=== PATIENT | female | born 1975 | race American Indian/Alaskan Native ===

== ENCOUNTER 2017-04-26 18:14 | Emergency (ER) | payer OTHER ==
[2017-04-26] MEDS ORDERED: FLEXERIL PO ONE (20:34)
[2017-04-26] MEDS ORDERED: TORADOL IM ONE (20:34)
--- NOTE | 2017-04-26 21:38 | XRay Report ---
FINAL REPORT EXAM: XR HIP 2-3V LT HISTORY: pain/injury COMPARISONS: None. FINDINGS: AP pelvis with frog-leg lateral view left hip Left hip joint is intact. Hip joint spaces are symmetric and preserved. No displaced fractures. Sacroiliac joints and pubic symphysis are without acute finding. Fallopian contraceptive devices. Pelvic phleboliths. IMPRESSION: No fracture or dislocation.
--- NOTE | 2017-04-26 22:20 | Emergency Department Report ---
Entered by WANDER GORE, acting as scribe for REJI OCASIO PA. ED Lower Extremity HPI - General Chief Complaint: Extremity Injury, Lower Stated Complaint: LEFT PAIN Time Seen by Provider: 04/26/17 20:11 Source: patient Mode of arrival: Ambulatory Limitations: No Limitations - History of Present Illness Initial Comments: 42 y/o female with no significant PMHx presents to the ED c/o left hip pain that began this afternoon at 13:30. Patient states she was running at work, and she subsequently heard a pop in left hip. Rates pain an 8/10 in severity, which she describes as aching in quality. Aggravated weight bearing, walking, and movement, and alleviated with immobilization. Denies fall injury, abdominal pain , numbness and tingling. Took Motrin with no relief. LMP 04/12/2017. NKDA. MOLINA Complaint: hip injury (left) -: This afternoon Time: 13:30 Injury: Hip: Left Type of Injury: unknown Place: work Severity: severe Severity scale (0 -10): 10 Improves With: nothing Worsens With: weight bearing, movement, palpation Context: running Associated Symptoms: snap/pop sensation, able to partially bear weight. denies : swelling, numbness, tingling - Related Data Previous Rx's Medication Instructions Recorded Last Taken Type Cyclobenzaprine [Flexeril] 10 mg PO QHS PRN #24 tablet 04/26/17 Unknown Rx Ibuprofen [Motrin] 800 mg PO Q8HR PRN #40 tablet 04/26/17 Unknown Rx Allergies Allergy/AdvReac Type Severity Reaction Status Date / Time No Known Allergies Allergy Verified 04/26/17 18:39 ED Review of Systems Comment: All other systems reviewed and negative Constitutional: denies: chills, diaphoresis, fever, weakness Eyes: denies: eye pain, eye discharge, vision change ENT: denies: ear pain, throat pain Respiratory: denies: cough, orthopnea, shortness of breath, SOB with exertion, SOB at rest, stridor, wheezing Cardiovascular: denies: chest pain, palpitations, dyspnea on exertion, orthopnea , edema, syncope, paroxysmal nocturnal dyspnea Endocrine: no symptoms reported Gastrointestinal: denies: abdominal pain, nausea, vomiting, diarrhea Musculoskeletal: myalgia (left hip pain). denies: back pain, joint swelling, arthralgia Skin: denies: rash, lesions Neurological: denies: headache, weakness, numbness, paresthesias ED Past Medical Hx - Past Medical History Previous Medical History?: No - Surgical History Past Surgical History?: No - Social History Smoking Status: Never Smoker Substance Use Type: Alcohol - Medications Home Medications: Home Medications Medication Instructions Recorded Confirmed Last Taken Type Cyclobenzaprine [Flexeril] 10 mg PO QHS PRN #24 tablet 04/26/17 Unknown Rx Ibuprofen [Motrin] 800 mg PO Q8HR PRN #40 tablet 04/26/17 Unknown Rx ED Physical Exam - General Limitations: No Limitations General appearance: alert, in no apparent distress - Head Head exam: Present: atraumatic, normocephalic - Eye Eye exam: Present: normal appearance, PERRL, EOMI Pupils: Present: normal accommodation - ENT ENT exam: Present: normal exam, mucous membranes moist, normal external ear exam - Neck Neck exam: Present: normal inspection, full ROM. Absent: tenderness, meningismus, lymphadenopathy - Respiratory Respiratory exam: Present: normal lung sounds bilaterally. Absent: respiratory distress, wheezes, rales, rhonchi, stridor, accessory muscle use, decreased breath sounds - Cardiovascular Cardiovascular Exam: Present: regular rate, normal rhythm, normal heart sounds. Absent: systolic murmur, diastolic murmur, rubs, gallop - GI/Abdominal GI/Abdominal exam: Present: soft, normal bowel sounds. Absent: distended, tenderness, guarding, rebound, rigid - Extremities Exam Extremities exam: Present: full ROM (painful ROM to left hip), tenderness (left hip), normal capillary refill. Absent: pedal edema, joint swelling, calf tenderness - Expanded Lower Extremity Exam Left Hip exam: Present: full ROM (painful ROM to left hip), tenderness, external rotation, internal rotation, pelvic stability. Absent: swelling, abrasion, laceration, ecchymosis, deformity, crepidus, dislocation, erythema, shortening Upper Leg exam: Present: normal inspection, full ROM. Absent: tenderness, swelling, abrasion, laceration, ecchymosis, deformity, crepidus, dislocation, erythema Knee exam: Present: normal inspection, full ROM Lower Leg exam: Present: normal inspection, full ROM Ankle exam: Present: normal inspection, full ROM Foot/Toe exam: Present: normal inspection, full ROM Neuro vascular tendon exam: Present: no vascular compromise. Absent: pulse deficit, abnormal cap refill, motor deficit, sensory deficit, tendon deficit, extremity cold to touch, pallor, abnormal 2-point discrimination, decreased fine /light touch, foot drop, peroneal nerve deficit, significant pain with passive ROM of distal joint Gait: Positive: observed and limited by pain - Back Exam Back exam: Present: normal inspection, full ROM. Absent: tenderness, paraspinal tenderness, vertebral tenderness - Neurological Exam Neurological exam: Present: alert, oriented X3, normal gait (limited due to left hip pain) - Psychiatric Psychiatric exam: Present: normal affect, normal mood - Skin Skin exam: Present: warm, dry, intact. Absent: rash ED Course Vital Signs 04/26/17 18:34 Temperature 97.7 F Pulse Rate 73 Respiratory 16 Rate Blood Pressure 137/78 O2 Sat by Pulse 100 Oximetry ED Lower Extremity MDM - Medical Decision Making 42 year-old female presents with left hip myalgia ED course: Patient received an X-ray of left hip. Patient received 1 dose of Toradol and 1 dose of Flexeril. Hip x-ray shows no acute fracture, dislocation normal hip x-ray Discussed the patient pain medication as prescribed. Discussed with patient to apply heat to left hip and to keep leg elevated. Discussed the patient to follow instructions as given and follow-up with primary care physician and orthopedic referred. Discuss her symptoms return or worsen to return to the ED Vital signs are normal patient is in no acute distress ED Disposition Clinical Impression: Lumbar radiculopathy, Myalgia Disposition: TO HOME OR SELFCARE Is pt being admited?: No Does the pt Need Aspirin: No Condition: Stable Instructions: Muscle Strain (ED), Lumbar Radiculopathy (ED), Musculoskeletal Pain (ED) Additional Instructions: Follow-up with a primary care physician. Follow-up. Orthopedic is negative. Take your medication as prescribed Prescriptions: Cyclobenzaprine [Flexeril] 10 mg PO QHS PRN #24 tablet PRN Reason: Muscle Spasm Ibuprofen [Motrin] 800 mg PO Q8HR PRN #40 tablet PRN Reason: Pain Referrals: PRIMARY CARE, [Primary Care Provider] - 3-5 Days WEI CHRISTIAN MD [Staff Physician] - 3-[address] [facility] [Outside] - 3-5 Days [facility] [Outside] - 3-5 Days TERE OHARA MD [Staff Physician] - 3-5 Days Forms: Accompanied Note, Work/School Release Form Time of Disposition: 21:27 This documentation as recorded by the idaibBAO goldstein JASMINE,accurately reflects the service I personally performed and the decisions made by ,REJI OCASIO PA.
[2017-04-26 22:45] VITALS: BP 143/86
== END 2017-04-26 22:45 | disposition home or self-care (01) ==
LOC: ED 18:14
DX: M25.552 Pain in left hip (principal); M54.16 Radiculopathy, lumbar region; M79.1 Myalgia; X58.XXXA Exposure to other specified factors, initial encounter; Y93.89 Activity, other specified; Y99.8 Other external cause status; Y92.89 Other specified places as the place of occurrence of the external cause
CPT/HCPCS: 73502; 96372; 99283; J1885

== ENCOUNTER 2020-07-13 11:28 | Emergency (ER) | payer SELFPAY ==
[2020-07-13 12:29] LABS: Basophils % (Auto) 0.3 % (0.0-1.8); Eosinophils % (Auto) 0.3 % (0.0-4.3); Hematocrit 31.5 % (30.3-42.9); Hemoglobin 10.5 gm/dl (10.1-14.3); Lymphocytes # (Auto) 1.7 K/mm3 (1.2-5.4); Lymphocytes % (Auto) 14.1 % (13.4-35.0); Mean Corpuscular HGB Conc 33 % (30-34); Mean Corpuscular Volume 79 fl (79-97); Monocytes # (Auto) 0.7 K/mm3 (0.0-0.8); Monocytes % (Auto) 5.5 % (0.0-7.3); Platelet Count 361 K/mm3 (140-440); Red Blood Count 3.99 M/mm3 (3.65-5.03); Red Cell Distribution Width 18.5 % (13.2-15.2)
--- NOTE | 2020-07-13 19:30 | Emergency Department Report ---
ED Female HPI - General Chief complaint: Vaginal Bleeding Stated complaint: BLOOD FLOW ABNORMAL/HEADACHE Time Seen by Provider: 07/13/20 18:18 Source: patient Mode of arrival: Ambulatory Limitations: No Limitations - History of Present Illness Initial comments: The patient was evaluated in the emergency department for symptoms described in the history of present illness. He/she was evaluated in the context of the global COVID-19 pandemic, which necessitated consideration that the patient might be at risk for infection with the virus that causes COVID-19. Institutional protocols and algorithms that pertain to the evaluation of patients at risk for COVID-19 are in a state of rapid change based on information released by regulatory bodies including the CDC and federal and state organizations. These policies and algorithms were followed during the patient's care in the emergency department. Please note that these policies, procedures and recommendations changed on a rapid basis. 45-year-old -[place] female presents to the emergency room for 2-day history of heavy bleeding with clots. Patient also was complaining of a headach e but states that it has improved. Patient states that she is going to 3-4 maxipads per hour. Patient reports that she has a Essure to both tubes. Patient reports she is having intermittent menstrual periods. MD Complaint: vaginal bleeding Onset/Timin -: days(s) Location: suprapubic Severity: severe Quality: cramping Consistency: constant Improves with: none Worsens with: none Are you Now?: No Last Menstrual Period: 07/12/20 EDC: 04/18/21 Associated Symptoms: vaginal bleeding, abdominal pain, headaches (Resolved). denies: vaginal discharge, nausea/vomiting, fever/chills, loss of appetite, hematuria, shortness of breath - Related Data Sexually active: Yes Previous Rx's Medication Instructions Recorded Last Taken Type Cyclobenzaprine [Flexeril] 10 mg PO QHS PRN #24 tablet 04/26/17 Unknown Rx Ibuprofen [Motrin 800 MG tab] 800 mg PO Q8HR PRN #30 tablet 07/13/20 Unknown Rx Allergies Allergy/AdvReac Type Severity Reaction Status Date / Time No Known Allergies Allergy Verified 04/26/17 18:39 ED Review of Systems ROS: Stated complaint: BLOOD FLOW ABNORMAL/HEADACHE Other details as noted in HPI Comment: All other systems reviewed and negative ED Past Medical Hx - Past Medical History Previous Medical History?: No - Surgical History Past Surgical History?: No - Social History Smoking Status: Never Smoker Substance Use Type: Alcohol - Medications Home Medications: Home Medications Medication Instructions Recorded Confirmed Last Taken Type Cyclobenzaprine [Flexeril] 10 mg PO QHS PRN #24 tablet 04/26/17 Unknown Rx Ibuprofen [Motrin 800 MG tab] 800 mg PO Q8HR PRN #30 tablet 07/13/20 Unknown Rx ED Physical Exam - General Limitations: No Limitations General appearance: alert, in no apparent distress - Head Head exam: Present: atraumatic, normocephalic - Eye Eye exam: Present: normal appearance - ENT ENT exam: Present: mucous membranes moist - Neck Neck exam: Present: normal inspection - Respiratory Respiratory exam: Present: normal lung sounds bilaterally. Absent: respiratory distress - Cardiovascular Cardiovascular Exam: Present: regular rate, normal rhythm. Absent: systolic murmur, diastolic murmur, rubs, gallop - GI/Abdominal GI/Abdominal exam: Present: soft, tenderness (Suprapubic). Absent: distended - Extremities Exam Extremities exam: Present: normal inspection - Back Exam Back exam: Present: normal inspection - Neurological Exam Neurological exam: Present: alert, oriented X3, normal gait - Psychiatric Psychiatric exam: Present: normal affect, normal mood - Skin Skin exam: Present: warm, dry, intact, normal color. Absent: rash ED Course Vital Signs 07/13/20 11:51 Temperature 98.4 F Pulse Rate 79 Respiratory 18 Rate Blood Pressure 184/113 [Right] O2 Sat by Pulse 100 Oximetry ED Medical Decision Making - Lab Data Result diagrams: 07/13/20 12:02 Laboratory Tests 07/13/20 07/13/20 07/13/20 12:02 12:02 12:02 WBC 12.0 H RBC 3.99 Hgb 10.5 Hct 31.5 MCV 79 MCH 26 L MCHC 33 RDW 18.5 H Plt Count 361 Lymph % (Auto) 14.1 Burt % (Auto) 5.5 Eos % (Auto) 0.3 Baso % (Auto) 0.3 Lymph # (Auto) 1.7 Burt # (Auto) 0.7 Eos # (Auto) 0.0 Baso # (Auto) 0.0 Seg Neutrophils % 79.8 H Seg Neutrophils # 9.5 H HCG, Qual Negative HCG, Quant < 2 Blood Type 07/13/20 12:02 WBC RBC Hgb Hct MCV MCH MCHC RDW Plt Count Lymph % (Auto) Burt % (Auto) Eos % (Auto) Baso % (Auto) Lymph # (Auto) Burt # (Auto) Eos # (Auto) Baso # (Auto) Seg Neutrophils % Seg Neutrophils # HCG, Qual HCG, Quant Blood Type O POSITIVE - Radiology Data Radiology results: report reviewed Referring Physician:KAT CARDENASPatient Name:JAMES MCPatient ID:[id number] of :[id number]:FemaleAccession:[id number] Date:[id number] Status:Finalized Findings [facility] [address] [place] [address] Ultrasound Report Signed Patient: JAMES MC MR#: [id number] : 1975 Acct:[id number] Age/Sex: 45 / F ADM Date: 07/13/20 Loc: ED Attending Dr: Ordering Physician: PADDY COTTO Date of Service: 07/13/20 Procedure(s): US transvaginal Accession Number(s): [id number] cc: PADDY COTTO CLINICAL DATA: pelvic pain with heavy bleeding TECHNICAL DATA: Ultrasound, pelvic (nonobstetric), real-time with image documentation; transabdominal and transvaginal imaging with Doppler was performed. FINDINGS: The uterus is of normal size and echogenicity. Several posterior uterine fibroids present. There are no uterine masses. Endometrial thickness is within normal limits. The right and left ovaries are not identified. There is minimum free fluid dependently within the pelvis. IMPRESSION: Uterine fibroids GUIDELINES FOR IMAGING OF OVARIAN--ADNEXAL CYST: WOMEN OF REPRODUCTIVE AGE: 1. Cysts <=3 cm: Normal physiologic findings; at the discretion of the interpreting physician whether or not to describe them in the imaging report; do not need follow-up. 2. Cysts >3 and <=5 cm: Should be described in the imaging report with a statement that they are almost certainly benign; do not need follow-up. 3. Cysts >5 and <=7 cm: Should be described in the imaging report with a statement that they are almost certainly benign; yearly follow-up with US recommended. 4. Cysts >7 cm: Since these may be difficult to assess completely with US, further imaging with magnetic resonance (MR) or surgical evaluation should be considered. POSTMENOPAUSAL WOMEN: 1. Cysts <=1 cm: Are clinically inconsequential; at the discretion of the interpreting physician whether or not to describe them in the imaging report; do not need follow-up. 2. Cysts >1 and <=7 cm: Should be described in the imaging report with statement that they are almost certainly benign; yearly follow-up, at least initially, with US recommended. Some practices may opt to increase the lower size threshold for follow-up from 1 cm to as high as 3 cm. One may opt to continue follow-up annually or to decrease the frequency of follow-up once stability or decrease in size has been confirmed. Cysts in the larger end of this range should still generally be followed on a regular basis. 3. Cysts >7 cm: Since these may be difficult to assess completely with US, f urther imaging with MR or surgical evaluation should be considered. Signer Name: Hima Dykes MD Signed: 07/13/2020 9:00 PM Workstation Name: [id number] Transcribed By: WG Dictated By: Hima Dykes MD Electronically Authenticated By: Hima Dykes MD Signed Date/Time: 07/13/202099 DD/ 99 TD/TT: - Medical Decision Making 45-year-old -[place] female presents to the emergency room for 2-day history of heavy bleeding with clots. Patient also was complaining of a headache but states that it has improved. Patient states that she is going to 3-4 maxipads per hour. Patient reports that she has a Essure to both tubes. Patient reports she is having intermittent menstrual periods. Acetaminophen 1 g p.o. given for pain. Ultrasound pelvic and transvaginal has been ordered. Patient is hemodynamically stable. Ultrasound shows that patient has uterine fibroids not able to appreciate the ovaries. Recommend ibuprofen or naproxen for pain management. Follow-up with [facility]. Critical care attestation.: If time is entered above; I have spent that time in minutes in the direct care of this critically ill patient, excluding procedure time. ED Disposition Clinical Impression: Abnormal uterine bleeding (AUB), Fibroids Disposition: TO HOME OR SELFCARE Is pt being admited?: No Does the pt Need Aspirin: No Condition: Stable Instructions: Uterine Fibroids (ED), Menorrhagia (ED) Additional Instructions: Ultrasound shows that you have fibroids in the uterus. I recommend for you to follow-up with [facility] I have listed several below for your convenience. You can take ibuprofen or naproxen for for pain. Prescriptions: Ibuprofen [Motrin 800 MG tab] 800 mg PO Q8HR PRN #30 tablet PRN Reason: Pain Referrals: PRIMARY CARE, [Primary Care Provider] - 3-5 Days TISH RODRIGUEZ MD [Staff Physician] - 3-5 Days [facility] [Provider Group] - 3-5 Days [facility] [Provider Group] - 3-5 Days Forms: Work/School Release Form(ED)
[2020-07-13] MEDS ORDERED: ACETAMINOPHEN 500 MG TAB PO ONE (19:31)
[2020-07-13 19:34] LABS: Bilirubin,Urine NEG (Negative); Blood,Urine LG (Negative); Color,Urine Red (Yellow); Mucus,Urine 1+ /HPF; Urobilinogen,Urine < 2.0 mg/dL (<2.0)
[2020-07-13 19:40] LABS: RBC,Urine > 182.0 /HPF (0.0-6.0)
--- NOTE | 2020-07-13 21:04 | Ultrasound Report ---
CLINICAL DATA: pelvic pain with heavy bleeding TECHNICAL DATA: Ultrasound, pelvic (nonobstetric), real-time with image documentation; transabdominal and transvagina l imaging with Doppler was performed. FINDINGS: The uterus is of normal size and echogenicity. Several posterior uterine fibroids present. There are no uterine masses. Endometrial thickness is within normal limits. The right and left ovaries are not identified. There is minimum free fluid dependently within the pel vis. IMPRESSION: Uterine fibroids GUIDELINES FOR IMAGING OF OVARIAN--ADNEXAL CYST: WOMEN OF REPRODUCTIVE AGE: 1. Cysts <=3 cm: Normal physiologic findings; at the discretion of the interpreting physician whether or not to describe them in the imaging report; do not need follow-up. 2. Cysts >3 and <=5 cm: Should be described in the imaging report with a statement that they are almo st certainly benign; do not need follow-up. 3. Cysts >5 and <=7 cm: Should be described in the imaging report with a statement that they are almo st certainly benign; yearly follow-up with US recommended. 4. Cysts >7 cm: Since these may be difficult to assess completely with US, further imaging with magne tic resonance (MR) or surgical evaluation should be considered. POSTMENOPAUSAL WOMEN: 1. Cysts <=1 cm: Are clinically inconsequential; at the discretion of the interpreting physician whet her or not to describe them in the imaging report; do not need follow-up. 2. Cysts >1 and <=7 cm: Should be described in the imaging report with statement that they are almost certainly benign; yearly follow-up, at least initially, with US recommended. Some practices may opt to increase the lower size threshold for follow-up from 1 cm to as high as 3 cm. One may opt to darrell nue follow-up annually or to decrease the frequency of follow-up once stability or decrease in size h as been confirmed. Cysts in the larger end of this range should still generally be followed on a regu lar basis. 3. Cysts >7 cm: Since these may be difficult to assess completely with US, further imaging with MR or surgical evaluation should be considered. Signer Name: Hima Dykes MD Signed: 07/13/2020 9:00 PM Workstation Name: [id number]
[2020-07-13 21:34] VITALS: BP 129/93
[2020-07-13] MEDS ORDERED: IBUPROFEN 800 MG TAB ONE (21:39)
[2020-07-13] MEDS ORDERED: IBUPROFEN 800 MG TAB PO ONE (21:39)
== END 2020-07-13 21:47 | disposition home or self-care (01) ==
LOC: ED 11:28
DX: D21.9 Benign neoplasm of connective and other soft tissue, unspecified (principal); N93.9 Abnormal uterine and vaginal bleeding, unspecified; Z79.1 Long term (current) use of non-steroidal anti-inflammatories (NSAID); Z79.899 Other long term (current) drug therapy
CPT/HCPCS: 36415; 76830; 76856; 81001; 84702; 84703; 85025; 86900; 86901; 87086